=== PATIENT | female | born 1955 | race Caucasian/White ===

== ENCOUNTER → 2020-04-11 | Outpatient (CLI) | payer MEDICARE, OTHER | LOC: EXRD 07:51 | DX: K76.0 Fatty (change of) liver, not elsewhere classified (principal); K81.9 Cholecystitis, unspecified | CPT/HCPCS: 76700 ==

== ENCOUNTER → 2020-04-25 | Outpatient (CLI) | payer MEDICARE, OTHER | LOC: NM 08:58 | DX: R10.11 Right upper quadrant pain (principal) | CPT/HCPCS: 78226; A9537 ==

== ENCOUNTER 2021-01-27 15:39 | Emergency (ER) | payer MEDICARE, OTHER ==
[2021-01-27 16:49] LABS: HEMOGLOBIN 11.7 gm/dl (12.3-15.3); RED BLOOD COUNT 4.16 M/UL (4.00-5.10); WHITE BLOOD COUNT 6.4 K/UL (4.5-11.0)
[2021-01-27 17:29] LABS: BUN/CREATININE RATIO 20 (0-10)
[2021-01-27] MEDS ORDERED: LASIX40 MG PO (20:12)
[2021-01-27] MEDS ORDERED: K-TAB ER10 MEQ PO (20:12)
== END 2021-01-27 20:20 | disposition home or self-care (01) ==
LOC: ER1 15:39
PROVIDERS: Family Medicine
DX: I11.0 Hypertensive heart disease with heart failure (principal); I50.810 Right heart failure, unspecified; Z20.822 Contact with and (suspected) exposure to COVID-19
CPT/HCPCS: 71046; 80053; 82550; 82553; 83874; 83880; 84484; 85025; 85379; 85610; 93005; 99284; Q9967; U0002